=== PATIENT | male | born 1950 | race Caucasian/White ===

== ENCOUNTER 2021-03-28 13:48 | Emergency (ER) | payer MEDICARE ==
[~2021-03-28] VITALS: Ht 182.9 cm; Wt 99.8 kg
[2021-03-28 14:14] VITALS: BP 132/78
== END 2021-03-28 14:19 | disposition home or self-care (01) ==
LOC: ER 13:57
DX: U07.1 COVID-19 (principal); R05.9 Cough, unspecified
CPT/HCPCS: 99282